=== PATIENT | female | born 1985 | race Two or more races ===

== ENCOUNTER 2017-07-13 18:55 | Emergency (ER) | payer BC, OTHER, SELFPAY ==
[~2017-07-13] VITALS: Ht 162.6 cm; Wt 92.6 kg
[2017-07-13] MEDS ORDERED: SODIUM CHLORIDE 0.9% 1,000ML IVBOLUS ONE (19:30)
[2017-07-13] MEDS ORDERED: SODIUM CHLORIDE FLUSH 10ML SYR IVF ONE (19:30)
[2017-07-13] MEDS ORDERED: ETHI1TAB7 PO (19:52)
[2017-07-13 19:53] LABS: HEMATOCRIT 42.3 % (34.6-47.8); WHITE BLOOD COUNT 13.7 x10^3/uL (3.4-10)
[2017-07-13 20:04] LABS: BLOOD UREA NITROGEN 11 mg/dL (7-18)
[2017-07-13 20:10] LABS: ASPARTATE AMINO TRANSFERASE 11 U/L (15-37)
[2017-07-13 21:09] VITALS: BP 123/66
== END 2017-07-13 21:24 | disposition home or self-care (01) ==
LOC: ED 20:33
DX: R10.11 Right upper quadrant pain (principal); R10.12 Left upper quadrant pain; R10.13 Epigastric pain
CPT/HCPCS: 36415; 80053; 81003; 83690; 84703; 85025; 96360; 96361; 99285; J7030

== ENCOUNTER 2018-10-29 08:14 | Outpatient (CLI) | payer OTHER ==
[~2018-10-29 08:14] MED LIST: ETHI1TAB7 PO; FAMO20TA7 PO; OMEP10CA4 PO
[2018-10-29] MEDS ORDERED: ETHI1TAB PO (10:54)
[2018-10-29] MEDS ORDERED: IBUP-1623 PO (10:54)
[2018-10-29] MEDS ORDERED: DICY20TA3 PO (10:54)
== END 2018-10-29 23:59 | disposition home or self-care (01) ==
LOC: STAR 08:14
PROVIDERS: ATTEND Internal Medicine Geriatric Medicine
DX: Z02.9 Encounter for administrative examinations, unspecified (principal)

== ENCOUNTER 2018-11-02 05:39 | Day surgery (SDC) | payer OTHER ==
[~2018-11-02] VITALS: Ht 162.6 cm; Wt 100.4 kg
[~2018-11-02 05:39] MED LIST changes: +DICY20TA3 PO; +ETHI1TAB PO; +IBUP-1623 PO
[2018-11-02] MEDS ORDERED: LACTATED RINGERS 1,000 ML IV SCH (06:11)
[2018-11-02 06:18] LABS: HCG UR SG 1.018 (1.003-1.030)
[2018-11-02 06:32] VITALS: BP 133/84
[2018-11-02] MEDS ORDERED: MIDAZOLAM 1 MG/ML, 2ML ONE (07:24)
[2018-11-02] MEDS ORDERED: FENTANYL PF 100 MCG/2ML ONE (07:24)
[2018-11-02] MEDS ORDERED: PROPOFOL 10 MG/ML, 20ML ONE (07:30)
[2018-11-02] MEDS ORDERED: ONDANSETRON 2MG/ML, 2ML ONE (07:30)
[2018-11-02] MEDS ORDERED: DEXAMETHASONE 4 MG/ML, 1ML ONE (07:30)
[2018-11-02] MEDS ORDERED: FENTANYL PF 100 MCG/2ML IV PRN (08:00)
[2018-11-02] MEDS ORDERED: AMPICILLIN/SULBACTAM 3 GM in SODIUM CHLORIDE 0.9% 100 ML IV ONE (08:00)
[2018-11-02] MEDS ORDERED: ONDANSETRON 2MG/ML, 2ML IV PRN (08:00)
[2018-11-02] MEDS ORDERED: HYDROmorphone 2 MG/ML, 1ML IVPush PRN (08:00)
[2018-11-02] MEDS ORDERED: OXYcodone 5 MG/5 ML ORAL.SOL UDC PO PRN (08:00)
[2018-11-02] MEDS ORDERED: MEPERIDINE/PF 25MG/0.5ML IVPush PRN (08:00)
== END 2018-11-02 09:55 | disposition home or self-care (01) ==
LOC: OUT 05:39
PROVIDERS: ATTEND Internal Medicine Geriatric Medicine
DX: K29.50 Unspecified chronic gastritis without bleeding (principal); K86.2 Cyst of pancreas; Z90.49 Acquired absence of other specified parts of digestive tract; Z98.890 Other specified postprocedural states; Z72.89 Other problems related to lifestyle
CPT/HCPCS: 43242; 81025; 88305; J1100; J2250; J2405; J2704; J3010; J7120

== ENCOUNTER 2018-11-06 17:53 | Emergency (ER) | payer OTHER ==
[~2018-11-06] VITALS: Ht 162.6 cm; Wt 98.0 kg
--- NOTE | 2018-11-06 18:07 | NUR ---
THIS IS A 33 YEAR OLD FEMALE WHO C/O OF MID ABD PAIN WITH N/V. INSTRUCTED PATIENT NEED FOR UA, PROPER CLEANING TAUGHT. PT VERBALIZED UNDERSTANDING
[2018-11-06] MEDS ORDERED: FAMOTIDINE 20 MG/2 ML IVP ONE (18:30)
[2018-11-06] MEDS ORDERED: SODIUM CHLORIDE FLUSH 10ML SYR IVF ONE (18:30)
[2018-11-06] MEDS ORDERED: ONDANSETRON 2MG/ML, 2ML IVPush ONE (18:30)
[2018-11-06] MEDS ORDERED: SODIUM CHLORIDE 0.9% 1,000ML IVBOLUS ONE (18:30)
[2018-11-06] MEDS ORDERED: ONDANSETRON 2MG/ML, 2ML ONE (18:41)
[2018-11-06] MEDS ORDERED: FAMOTIDINE 20 MG/2 ML ONE (18:41)
[2018-11-06 18:54] LABS: BASOPHILS % (AUTO) 0 % (0-1); EOSINOPHILS # (AUTO) 0.12 x10^3/uL (0-0.4); EOSINOPHILS % (AUTO) 1 % (1-7); LYMPHOCYTES # (AUTO) 1.69 x10^3/uL (1-3.4); LYMPHOCYTES % (AUTO) 15 % (22-44); MD NO; MEAN CORPUSCULAR HEMOGLOBIN 28.3 pg (27.0-34.8); MEAN CORPUSCULAR HGB CONC 34.1 g/dL (32.4-35.8); MEAN CORPUSCULAR VOLUME 82.9 fL (80-100); MEAN PLATELET VOLUME 8.4 fL (7.4-10.4); MONOCYTES # (AUTO) 0.28 x10^3/uL (0.2-0.8); MONOCYTES % (AUTO) 3 % (2-9); NEUTROPHILS # (AUTO) 9.31 x10^3/uL (1.8-6.8); NEUTROPHILS % (AUTO) 82 % (42-75); PLATELET COUNT 224 x10^3/uL (130-400); RED BLOOD COUNT 4.99 x10^6/uL (3.82-5.3); RED CELL DISTRIBUTION WIDTH 14.6 % (9.6-15.2)
[2018-11-06 18:57] LABS: MICROSCOPIC INDICATED
--- NOTE | 2018-11-06 18:58 | NUR ---
REPORT TO GERTRUDE PEREZ, PLAN OF CARE DISCUSSED
--- NOTE | 2018-11-06 18:59 | NUR ---
REPORT RECEIVED FROM FRANCO PEREZ.
[2018-11-06 19:03] LABS: ALANINE AMINOTRANSFERASE 24 U/L (12-78); ALBUMIN 3.3 g/dL (3.4-5.0); ANION GAP 7 mmol/L (5-15); CALCIUM 8.4 mg/dL (8.5-10.1); CHLORIDE 107 mmol/L (98-107)
--- NOTE | 2018-11-06 19:05 | NUR ---
PT IN US NOW.
[2018-11-06 19:08] LABS: ALKALINE PHOSPHATASE 87 U/L (45-117); BILIRUBIN,TOTAL 0.3 mg/dL (0.2-1.0); CREATININE 0.91 mg/dL (0.55-1.02); TOTAL PROTEIN 7.6 g/dL (6.4-8.2)
[2018-11-06 19:08] LABS: CULTURE INDICATED? YES
--- NOTE | 2018-11-06 19:34 | NUR ---
PT MEDICATED PER EMAR.PT TOLERATED WELL. PT'S AOX4. RESPS EVEN AND UNLABORED.
[2018-11-06] MEDS ORDERED: MORPHINE SULFATE 4 MG/ML, 1ML IVPush PRN (20:00)
--- NOTE | 2018-11-06 20:26 | NUR ---
PT GIVEN SOME WATER. PO CHALLENGE PASSED AT THIS TIME. BUT PT STILL C/O PAIN 0/10 AT THIS TIME.
[2018-11-06] MEDS ORDERED: MORPHINE SULFATE 4 MG/ML, 1ML ONE (20:29)
--- NOTE | 2018-11-06 20:33 | NUR ---
PT MEDICATED PER EMAR FOR PAIN. PT TOLERATED WELL. PT'S AOX4. RESPS EVEN AND UNLABORED.
--- NOTE | 2018-11-06 20:46 | NUR ---
PT'S PAIN LEVEL IS 4/10 AT THIS TIME. AWAITING DC NOW.
[2018-11-06 20:59] VITALS: BP 146/83
--- NOTE | 2018-11-06 21:00 | NUR ---
PT GIVEN DC INSTRUCTIONS AND SCRIPTS. PT EDUCATED REGARDING DC MEDICATIONS. PT'S AOX4. RESPS EVEN AND UNLABORED. NO ACUTE DISTRESS AT DC.
== END 2018-11-06 21:01 | disposition home or self-care (01) ==
LOC: ED 18:27
DX: K86.2 Cyst of pancreas (principal); R10.13 Epigastric pain; R10.11 Right upper quadrant pain; R11.2 Nausea with vomiting, unspecified; R10.12 Left upper quadrant pain
CPT/HCPCS: 36415; 76700; 80053; 81001; 83690; 84703; 85025; 87086; 96361; 96374; 96375; 99284; J2405; J3490; J7030